=== PATIENT | female | born 2005 | race Caucasian/White ===

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

== ENCOUNTER 2025-01-15 15:24 | Emergency (ER) | payer BC, SELFPAY ==
--- OUTSIDE RECORDS SUMMARY | 2025-01-06 07:30 | XMS_ITS | Encounter Summary ---
Author Organization [facility] Address [id number] [address] [place] [address] Care Team Providers Care Printed Forms Proofreader Name Role Phone Luann Ji MD Primary Care Provider [phone] Reason for Visit * Reason Comments Follow-up 4 mo f/u- l/s KM- of fered a sooner appt- pt declined- pt passed out 12/15- want to be seen sooner- labs 11/18/24- sched w pt Encounter Details Date Type Department Care Team (Late st Contact Info) Description 01/06/2025 7:30 AM EDT Office Visit [facility] [address] [place] [phone] Kellee Pearson, FLARE STITCHER-CHARGE AUTHORIZER [address] [place] [address] Dysautonomia ([facility]) Social History Tobacco Use Types Packs/Day Years Used Date Smoking Tobacco: Never Smokeless Tobacco: Never Alcohol Use Standard Drinks/Week Comments Never 0 (1 standard drink = 0.6 oz pur e alcohol) PHQ-2 Answer Date Recorded Total Score 14 01/24/2024 Childcare Answer Date Recorded Childcare Unknown 01/14/2019 Employment Answer Date Recorded Employment Unknown 01/14/2019 Hunger Screening Answer Date Recorded Within the past 12 months we worried whether our food would run out before we got money to buy more. Never True 11/18/2024 Within the past 12 months th e food we bought just didn't last and we didn't have money to get more. Never True 11/18/2024 Comments No Sex and Gender Information Value Date Recorded Sex Assigned at Not on file Legal Sex Female 3:50 PM EST Gender Identity Not on file Sexual Orientation Not on file documented as of this encounter Last Filed Vital Signs Vital Sign Reading Time Taken Comments Blood Pressure 100/60 01/06/2025 7:39 AM EDT Pulse 97 01/06/2025 7:39 AM EDT Temperature - - Respiratory Rate - - Oxygen Saturation 100% 01/06/2025 7:39 AM EDT Inhaled Oxygen Concentration - - Weight 78.8 kg (173 lb 12.8 oz) 01/06/2025 7:39 AM EDT Height 160 cm (5' 2.99 ) 01/06/2025 7:39 AM EDT Body Mass Index 30.8 01/06/2025 7:39 AM EDT documented in this encounter Progress Notes * Kellee Pearson, FLARE STITCHER-CHARGE AUTHORIZER - 01/06/2025 7:30 AM EDT William Moser Date of visit: 01/06/2025 Date of : 2005 Age: 19 y.o. Patient Active Problem List Diagnosis ADHD (attention deficit hyperactivity disorder) Depression Oppositional defiant disorder Sleeping difficulty Cognitive developmental delay Speech delay Migraine without aura Postural dizziness with near syncope No Known Allergies Current Outpatient Medications Medication Sig Dispense Refill escitalopram (LEXAPRO) 10 mg tablet Take 1 tablet (10 mg total) by mouth in the morning. hydrOXYzine (VISTARIL) 25 mg capsule 1 capsule (25 mg total). medroxyPROGESTERone (DEPO-PROVERA) 150 mg/mL syringe Inject 1 mL (150 mg total) into the appropriate muscle every 3 (three) months. 1 mL 1 QELBREE 200 mg capsule,extended release 24hr blood pressure monitor (BLOOD PRESSURE KIT) kit 1 Unit by miscellaneous route once for 1 dose. 1 each 0 midodrine (PROAMATINE) 10 mg tablet Take 1 tablet (10 mg total) by mouth 3 (three) times a day. 90 tablet 3 No current facility-administered medications for this visit. Chief Complaint Patient presents with Follow-up 4 mo f/u- l/s KM- offered a sooner appt- pt declined- pt passed out 12/15- want to be seen sooner- labs 11/18/24- sched w pt History of Present Illness William Wallace Young 19-year-old female presents today accompanied by her mom to office appointment. available in office building. Patient has past medical history of POTS/dysautonomia, ADHD, depression. Had a syncopal episode after she did not get a break at work all day. 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 Patient reports she was standing for 8 hours and was unable to get breaks to be able to sit down rest. She is also not wearing compression socks. Blood pressure is normotensive in office today. She has been taking 5 mg of midodrine we discussed increasing i t to 10. We also discussed increasing electrolyte solution and sodium intake which patient agrees to. She is not monitoring her blood pressure at home because she does not have a blood pressure cuff.On blood pressure kit will be ordered in office today encourage her to continue to monitor in hold midodrine for systolic blood pressure greater than 130. No chest discomfort, shortness breath, palpitations, orthopnea PND or edema. Occasional lightheadedness dizziness and presyncope which is ongoing. Past Medical History: Diagnosis Date Anxiety Benign heart murmur Depression Dog bite Dysautonomia orthostatic hypotension syndrome Low blood pressure Ringworm of the scalp Tinea capitis No data recorded No data [...] Partners: Male control/protection: Injection Other Topics Concern Caffeine Use Yes Social History Narrative Not on file Social Drivers of Health Financial Resource Strain: Low Risk (03/18/2024) Received from [facility] Overall Financial Resource Strain (CARDIA) Difficulty of Paying Living Expenses: Not very hard Food Insecurity: No Food Insecurity (11/18/2024) Hunger Screening Food Insecurity - Worry: Never True Food Insecurity - Inability: Never True Transportation Needs: No Transportation Needs (03/18/2024) Received from [facility] PRAPARE - Transportation Lack of Transportation (Medical): No Lack of Transportation (Non-Medical): No Physical Activity: Not on file Stress: Not on file Social Connections: Not on file Interpersonal Safety: Not on file Housing Instability: Unknown (03/18/2024) Received from [facility] Housing Stability Vital Sign Unable to Pay for Housing in the Last Year: Patient declined Number of Times Moved in the Last Year: 1 Homeless in the Last Year: No Review of Systems Review of Systems Constitutional: Positive for malaise/fatigue. HENT: Positive for nosebleeds. Respiratory: Positive for shortness of breath. Negative for cough and wheezing. Hematologic/Lymphatic: Bruises/bleeds easily. Musculoskeletal: Positive for joint pain (hands). Negative for joint swelling, muscle cramps and muscle weakness. Gastrointestinal: Positive for diarrhea and nausea. Negative for bloating, abdominal pain, constipation, heartburn, hematochezia and vomiting. Genitourinary: Negative for hematuria. Neurological: Positive for dizziness, headaches and light-headedness. Vascular: Negative for claudication and lower extremity [...] mood, memory and judgement. VITAL SIGNS: BP 100/60 Pulse 97 Ht 160 cm (5' 2.99 ) Wt 78.8 kg (173 lb 12.8 oz) SpO2 100% BMI 30.80 kg/m?? Orders Placed or Reconciled This Encounter Medications hydrOXYzine (VISTARIL) 25 mg capsule Si capsule (25 mg total). midodrine (PROAMATINE) 10 mg tablet Sig: Take 1 tablet (10 mg total) by mouth 3 (three) times a day. Dispense: 90 tablet Refill: 3 blood pressure monitor (BLOOD PRESSURE KIT) kit Si Unit by miscellaneous route once for 1 dose. Dispense: 1 each Refill: 0 Medications Discontinued During This Encounter Medication Reason midodrine (PROAMATINE) 5 mg tablet IMPRESSIONS/PLAN 1. Dysautonomia (CMS-HCC) 2. Pots 3. Orthostatic hypotension 4. Normal LV function with no primary valve disease Increase sodium intake/wear compression socks/monitor blood pressure at home will increase her midodrine to 10 mg t.i.d.. She encouraged to take breaks sit down if feeling lightheaded. We discussed the importance of wearing compression hose I think this will significantly improve her symptoms in addition to increasing her medications and mean heating hydration and drinking electrolyte solutions discussed with patient and mom in office today. Patient verbalized understanding. Will follow up in 4weeks or sooner if needed. TODAYS ORDERS No orders of the defined types were placed in this encounter. FOLLOW UP Return in about 4 weeks (around 02/03/2025). PCP: Luann Ji MD Referring Physician: Luann Ji MD [address] [place] [id number] IBETH Mosher 01/06/25 0804 documented in this encounter Plan of Treatment Upcoming Encounters Date Type Department Care Team (Late st Contact Info) Description 02/11/2025 12:30 PM EDT Office Visit [facility] [address] [place] [phone] Fabienne Murphy PA-C [address] [place] [address] 02/12/2025 3:30 PM EDT Nurse Injection [facility] [address] [place] [address] documented as of this encounter Visit Diagnoses Diagnosis Dysautonomia (CMS-HCC) Unspecified disorder of autonomic nervous system documented in this encounter Additional Health Concerns Assessment Noted Time PHQ-9 Depression Total Score: 14 024 8:38 AM EDT documented as of this encounter Care Teams Printed Forms Proofreader Relationship Specialty Start Date End Date Luann Ji MD [address] [place] [phone] PCP - General Pediatrics 06/11/24 documented as of this encounter
--- OUTSIDE RECORDS SUMMARY | 2025-01-15 15:30 | XMS_ITS | Encounter Summary ---
Author Organization [employer] [facility] [employer] Address [id number] [address] [place] [address] Care Team Providers Care Seaming Inspector Name Role Phone Luann Ji MD Primary Care Provider [phone] Encounter Details Date Type Department Care Team (Late Contact Info) Description 04/17/2024 Telephone [facility] [address] [place] [address] Roya Alston Social History Tobacco Use Types Packs/Day Years [...] got money to buy more. Never True 01/24/2024 Within the past 12 months th e food we bought just didn't last and we didn't have money to get more. Never True 01/24/2024 Comments No Sex and Gender Information Value Date Recorded Sex Assigned at Not on file Legal Sex Female 3:50 PM EST Gender Identity Not on file Sexual Orientation Not on file documented as of this encounter Plan of Treatment Upcoming Encounters Date Type Department Care Team (Late Contact Info) Description 02/11/2025 12:30 PM EDT Office Visit [facility] [address] [place] [address] Fabienne Murphy PA-C [address] [place] [address] 02/12/2025 3:30 PM EDT Nurse Injection [facility] [address] [place] [address] documented as of this encounter Visit Diagnoses Not on filedocumented in this encounter Additional Health Concerns Assessment Noted Time PHQ-9 Depression Total Score: 14 024 8:38 AM EDT documented as of this encounter Care Teams Seaming Inspector Relationship Specialty Start Date End Date Luann Ji MD [address] [place] [address] PCP - General Pediatrics 06/11/24 documented as of this encounter
--- OUTSIDE RECORDS SUMMARY | 2025-01-15 15:30 | XMS_ITS | Encounter Summary ---
Author Organization [employer] Address [id number] [address] [place] [address] Care Team Providers Care Oyster Grower Name Role Phone Luann Ji MD Primary Care Provider [phone] Encounter Details Date Type Department Care Team (Late Contact Info) Description 02/16/2024 Orders Only [facility] [address] [place] [address] External, Scanning Provider Social History Tobacco Use Types Packs/Day Years [...] [facility] [address] [place] [phone] Fabienne Murphy PA-C [address] [place] [address] 02/12/2025 3:30 PM EDT Nurse Injection [facility] [address] [place] [address] documented as of this encounter Procedures Procedure Name Priority Date/Time Associated Diagnosis Comments ECG 12-LEAD Routine 02/16/2024 3:29 PM EDT documented in this encounter Results * ECG 12 lead (02/16/2024 3:29 PM EDT) us Scanning Provider External ECG ORDERABLES Final Result MANUALLY TRANSCRIBED RESULTS documented in this encounter Visit Diagnoses Not on filedocumented in this encounter Additional Health Concerns Assessment Noted Time PHQ-9 Depression Total Score: 14 01/23/ 024 8:38 AM EDT documented as of this encounter Care Teams Oyster Grower Relationship Specialty Start Date End Date Luann Ji MD [address] [place] [id number] PCP - General Pediatrics 06/11/24 documented as of this encounter
--- OUTSIDE RECORDS SUMMARY | 2025-01-15 15:30 | XMS_ITS | Encounter Summary ---
Author Organization [facility] Address [address] [place] [address] Care Team Providers Care Interior Decorator Paperhanging Name Role Phone Luann Ji DO Primary Care Provider [phone] Reason for Visit * Reason Comments Medication Refill Encounter Details Date Type Department Care Team (Late Contact Info) Description 05/06/2017 Refill [facility] Pediatric Neurology Spec [address] [facility] [address] [place] [address] Elicia Archer MD [address] [facility] [address] [place] [address] Medication Refill Social History Tobacco Use Types Packs/Day Years Used Date Smoking Tobacco: Never Smokeless Tobacco: Never Alcohol Use Standard Drinks/Week Comments No 0 (1 standard drink = 0.6 oz pur e alcohol) Comments Unknown Sex and Gender Information Value Date Recorded Sex Assigned at Not on file Legal Sex Female 3:31 PM EST Gender Identity Not on file Sexual Orientation Not on file documented as of this encounter Plan of Treatment Upcoming Encounters Date Type Department Care Team (Late st Contact Info) Description 03/18/2025 1:20 PM EDT Office Visit [facility] [address] [place] [phone] Luann Ji DO [address] [place], [place] [phone] 19 yr well documented as of this encounter Visit Diagnoses Diagnosis Vitamin D deficiency Unspecified vitamin D deficiency documented in this encounter Care Teams Interior Decorator Paperhanging Relationship Specialty Start Date End Date Luann Ji DO PCP - General Pediatrics 10/04/18 documented as of this encounter
--- OUTSIDE RECORDS SUMMARY | 2025-01-15 15:30 | XMS_ITS | Encounter Summary ---
Author Organization [facility] Address [address] [place] [address] Care Team Providers Care Meat Service Team Member Name Role Phone Luann Ji DO Primary Care Provider [phone] Reason for Visit * Reason Comments Medication Refill Encounter Details Date Type Department Care Team (Late Contact Info) Description 08/22/2015 Refill [facility] [address] [place] [address] Richard Lackey MD [address] [facility] [address] [place] [address] Medication Refill Social History Tobacco Use Types Packs/Day Years Used Date Smoking Tobacco: Never Alcohol Use Standard Drinks/Week Comments [...] Description 03/18/2025 1:20 PM EDT Office Visit [facility] [address] [place] [address] Luann Ji DO [address] [place] [address] 19 yr well documented as of this encounter Visit Diagnoses Not on filedocumented in this encounter Care Teams Meat Service Team Member Relationship Specialty Start Date End Date Luann Ji DO PCP - General Pediatrics 10/04/18 documented as of this encounter
--- OUTSIDE RECORDS SUMMARY | 2025-01-15 15:30 | XMS_ITS | Clinical Summary ---
Author Organization [facility] Address [address] [place] [address] Care Team Providers Care Architecture Professor Name Role Phone Richard Lackey MD Primary Care Provider [phone] Allergies No known active allergies Medications methylphenidate (METADATE CD) 20 mg oral capsule take 20 mg by mouth every morning. Active clonIDINE (CATAPRES) 0.1 mg oral tablet take 0.0025 mg/kg by mouth twice daily. Active risperidone (RISPERDAL) 0.25 mg oral tablet take 0.25 mg by mouth twice daily. Take 1/2 pill 2x/day Active montelukast (SINGULAIR) 5 mg oral tablet, chewable take 5 mg by mouth once daily. Active fluticasone (FLONASE) nasal spray by Each Nostril route as needed. Active Active Problems No known active problems Family History Medical History Relation Comments Alcoholism Maternal Grandfather Attention Deficit Hyperactivity Disorder Natural Father Language Disorder Natural Father Learning Disability Natural Father Sexual Abuse Victim Natural Father Language Disorder Natural Mother Learning Disability Natural Mother Relation Status Comments Maternal Grandfather Natural Father Natural Mother Social History Tobacco Use Types Packs/Day Years Used Date Smoking Tobacco: Never Assessed Comments Unknown Sex and Gender Information Value Date Recorded Sex Assigned at Not on file Legal Sex Female 12:00 PM EDT Gender Identity Not on file Sexual Orientation Not on file Plan of Treatment Health Maintenance Due Date Last Done Comments MMR Vaccine (1 of 1 - Standa rd series) 2006 DTaP/Tdap/Td Vaccine (1 - Tdap) 2012 Varicella Vaccine (1 of 2 - 13+ 2-dose series) 2018 HPV Vaccine (1 - 3-dose series) 2020 Meningococcal B Vaccine (1 o f 2 - Standard) 2021 COVID-19 Vaccine (2023-2 5 season) 2024 Hepatitis B Vaccine (1 of 3 - 19+ 3-dose series) 2024 Influenza Vaccine (Season Ended) 2025 HIB Vaccine Aged Out No longer eligi ble based on patient's age to complete this topic Hepatitis A Vaccine Aged Out No longe r eligible based on patient's age to complete this topic IPV Vaccine Aged Out No longer eligi ble based on patient's age to complete this topic Meningococcal ACWY Vaccine Aged Out N o longer eligible based on patient's age to complete this topic Pneumococcal Vaccine Aged Out No long er eligible based on patient's age to complete this topic RSV, Nirsevimab Immunization Aged Out No longer eligible based on patient's age to complete this topic Rotavirus Vaccine Aged Out No longer eligible based on patient's age to complete this topic Insurance Care Teams Architecture Professor Relationship Specialty Start Date End Date Richard Lackey MD [address] [facility], [facility] [place] [address] PCP - General Teacher'S Assistant 09/03/12
--- OUTSIDE RECORDS SUMMARY | 2025-01-15 15:30 | XMS_ITS | Clinical Summary ---
Author Organization [facility] Address [address] [place] [address] Care Team Providers Care Diagnostic Assistant Name Role Phone Luann Ji MD Primary Care Provider [phone] Allergies No known active allergies Medications escitalopram (Lexapro) 20 MG tablet Take 20 mg by mouth in the morning. 08/13/2024 Active hydrOXYzine pamoate (Vistaril) 25 MG capsule TAKE 1 CAPSULE BY MOUTH TWICE DAILY NEEDED FOR ANXIETY 08/13/2024 Active midodrine (Proamatine) 5 MG tablet Take 5 mg by mouth in the morning and 5 mg at noon and 5 mg in the evening. 06/07/2024 Active traZODone (Desyrel) 50 MG tablet Take 50 mg by mouth as needed at bedtime 08/13/2024 Active Qelbree 200 MG capsule sustained-relea se 24 hr TAKE 2 CAPSULES BY MOUTH IN THE MORNING. Active Active Problems No known active problems Family History Relation Name Status Comments Father Alive Mother Alive Social History Tobacco Use Types Packs/Day Years Used Date Smoking Tobacco: Never Smokeless Tobacco: Never Tobacco Cessation:Counseling Given: Not Answered Alcohol Use Standard Drinks/Week Comments Not Currently 0 (1 standard drink = 0.6 oz pur e alcohol) Comments Unknown Sex and Gender Information Value Date Recorded Sex Assigned at Not on file Legal Sex Female 7:10 PM EDT Gender Identity Not on file Sexual Orientation Not on file Last Filed Vital Signs Vital Sign Reading Time Taken Comments Blood Pressure 98/58 03/29/2017 12:00 PM EDT Pulse - - Temperature - - Respiratory Rate - - Oxygen Saturation - - Inhaled Oxygen Concentration - - Weight 74.4 kg (164 lb) 09/05/2024 2:42 PM EST Height 160 cm (5' 3 ) 09/05/2024 2:42 PM EST Body Mass Index 29.05 09/05/2024 2:42 PM EST Body Mass Index Percentile 92.81% 09/05/2024 2:4 2 PM EST Growth Chart: [facility] (Girls, 2- 20 Years) Plan of Treatment Not on file Insurance [employer] [facility] Care Teams Diagnostic Assistant Relationship Specialty Start Date End Date Luann Ji MD [address] [place] [address] PCP - General Pediatrics 09/05/24
--- OUTSIDE RECORDS SUMMARY | 2025-01-15 15:30 | XMS_ITS | Encounter Summary ---
Author Organization [employer] Address [id number] [address] [place] [address] Care Team Providers Care Dry Kiln Operator Name Role Phone Luann Ji MD Primary Care Provider [phone] Encounter Details Date Type Department Care Team (Latest Contact Info) Description 01/06/2025 Travel Social History Tobacco Use Types Packs/Day Years [...] [facility] [address] [place] [phone] Fabienne Murphy PA-C [address] [place] [address] 02/12/2025 3:30 PM EDT Nurse Injection [facility] [address] [place] [address] documented as of this encounter Visit Diagnoses Not on filedocumented in this encounter Additional Health Concerns Assessment Noted Time PHQ-9 Depression Total Score: 14 024 8:38 AM EDT documented as of this encounter Care Teams Dry Kiln Operator Relationship Specialty Start Date End Date Luann Ji MD [address] [place] [address] PCP - General Pediatrics 06/11/24 documented as of this encounter
--- OUTSIDE RECORDS SUMMARY | 2025-01-15 15:30 | XMS_ITS | Encounter Summary ---
Author Organization [employer] Address [id number] [address] [place] [address] Care Team Providers Care Hourly Associate Name Role Phone Luann Ji MD Primary Care Provider [phone] Encounter Details Date Type Department Care Team (Late st Contact Info) Description 07/18/2023 Telephone [facility]ne[facility] [address] [facility] [place] [address] Raeann Luna Social History Tobacco Use Types Packs/Day Years Used Date Smoking Tobacco: Never Smokeless Tobacco: Never Alcohol Use Standard Drinks/Week Comments Never 0 (1 standard drink = 0.6 oz pur e alcohol) Childcare Answer Date Recorded Childcare Unknown 01/14/2019 Employment Answer Date Recorded Employment Unknown 01/14/2019 Comments No Sex and Gender Information Value Date Recorded Sex Assigned at Not on file Legal Sex Female 3:50 PM EST Gender Identity Not on file Sexual Orientation Not on file documented as of this encounter Miscellaneous Notes * Telephone Encounter - Raeann Luna - 07/18/2023 2:07 PM EST Patient's mom called stating the patient is due for her next depo injection & needs a refill sent in on the medication as she gives the patient her injection at home. Patient's mother also asked if she has to call in every 3 months requesting a refill or if we can send in refills. It looks likethe patient is due for her annual BC appointment in August. Please advise. Thank you. * Telephone Encounter - Raeann Luna - 07/18/2023 2:07 PM EST ----- Message from Janie Freeman sent at 07/18/2023 3:39 PM EST ----- ----- Message ----- From: Judy Fiore APRN-CNM Sent: 07/18/2023 2:29 PM EST To: Janie Freeman Please have pt. Schedule to come in and receive depo. Thank you. Judy Fiore CNM * Telephone Encounter - Raeann Luna - 07/18/2023 2:07 PM EST Patient's mother was unsure what date she last gave patient her depo injection. Patient mom notified patient is due for annual bc appointment per Orin. Patient is scheduled 07/25/23. documented in this encounter Plan of Treatment Upcoming Encounters Date Type Department Care Team (Late st Contact Info) Description 02/11/2025 12:30 PM EDT Office Visit [facility] [address] [place] [phone] Fabienne Murphy PA-C [address] [place] [address] 02/12/2025 3:30 PM EDT Nurse Injection [facility] [address] [place] [address] documented as of this encounter Visit Diagnoses Not on filedocumented in this encounter Care Teams Hourly Associate Relationship Specialty Start Date End Date Luann Ji MD [address] [place] [address] PCP - General Pediatrics 06/11/24 documented as of this encounter
--- OUTSIDE RECORDS SUMMARY | 2025-01-15 15:30 | XMS_ITS | Clinical Summary ---
Author Organization [employer] Address [id number] [address] [place] [address] Care Team Providers Care Resident Intern Name Role Phone Luann Ji MD Primary Care Provider [phone] Allergies No known active allergies Medications escitalopram (LEXAPRO) 10 mg tablet Take 1 tablet (10 mg total) by mouth in the morning. 022 Active medroxyPROGESTER one (DEPO-PROVERA) 150 mg/mL syringeIndicatio ns:Surveillance of contraceptive injection Inject 1 mL (150 mg total) into the appropriate muscle every 3 (three) months. 1 mL 1 023 Active QELBREE 200 mg capsule,extended release 24hr 024 Active hydrOXYzine (VISTARIL) 25 mg capsule 1 capsule (25 mg total). 024 Active midodrine (PROAMATINE) 10 mg tablet Take 1 tablet (10 mg total) by mouth 3 (three) times a day. 90 tablet 3 025 Active midodrine (PROAMATINE) 5 mg tabletIndication s:Dysautonomia (CMS-HCC) Take 1 tablet (5 mg total) by mouth 3 (three) times a day. 270 tablet 3 025 2024 Discontinued blood pressure monitor (BLOOD PRESSURE KIT) kit 1 Unit by miscellaneous route once for 1 dose. 1 each 025 2024 Active Problems Problem Noted Date Diagnosed Date Postural dizziness with near syncope 03/21/2023 Migraine without aura 08/23/2022 Sleeping difficulty 09/12/2016 Cognitive developmental delay 09/12/2016 Speech delay 09/12/2016 ADHD (attention deficit hyperactivity disorder) 01/01/2015 Depression 01/01/2015 Oppositional defiant disorder 01/01/2015 Overview (08/23/2022): Replacing Inactive Diagnoses Encounters Date Type Department Care Team Description 01/06/2025 7:30 AM EDT Office Visit [facility] [address] [place] [phone] Kellee Pearson, SECURITY PROGRAM MANAGER-APPLICATION INTEGRATION SPECIALIST Dysautonomia ([facility]) 01/06/2025 Travel 12/16/2024 Refill [facility] [address] [place] [phone] Nan Olsen RN Med Refill 11/27/2024 3:30 PM EDT Nurse Injection [facility] [address] [address] 11/27/2024 Travel 11/22/2024 Telephone [facility] [address] [place] [address] Judy Fiore, SECURITY PROGRAM MANAGER-CNM 11/18/2024 6:02 PM EDT - 11/18/2024 11:59 PM EDT Hospital Encounter [facility] [address] [place] [address] Acute vaginitis; Screening for STD (sexually transmitted disease); Dysuria Discharge Disposition: Home 11/18/2024 2:45 PM EDT Office Visit [facility] [address] [place] [phone] Kaur Ojeda MD Dysuria (Primary Dx); Screening for STD (sexually transmitted disease); Acute vaginitis; Acute cystitis with hematuria 11/18/2024 Travel from Last 3 Months Family History Medical History Relation Name Comments ADD / ADHD Father Depression Father Hypotension Maternal Grandmother Depression Mother Hypotension Mother Relation Name Status Comments Father Alive Maternal Grandmother Mother Alive Social History Tobacco Use Types [...] Mass Index 30.8 01/06/2025 7:39 AM EDT Plan of Treatment Upcoming Encounters Date Type Department Care Team (Late st Contact Info) Description 02/11/2025 12:30 PM EDT Office Visit [facility] [address] [place] [phone] Fabienne Murphy PA-C [address] [place] [address] 02/12/2025 3:30 PM EDT Nurse Injection [facility] [address] [place] [address] Health Maintenance Due Date Last Done Comments Adult BMI Follow Up Plan 12/09/2023 Depression Screening 01/23/2025 01/24/2024 Influenza Vaccine 04/07/2025 07/24/2012, , 07/23/2009, Additional history exists Adult BMI Screening 01/06/2026 01/06/2025 Tobacco Screening 01/06/2026 01/06/2025 DTaP,Tdap and Td Vaccines (7 - Td or Tdap) 03/19/2028 03/19/2018, 03/17/2011, 03/22/2007, Additional history exists Medical Devices Not on file Procedures Procedure Name Priority Date/Time Associated Diagnosis Comments CHLAMYDIA/GC BY PCR CHANDANA SWAB Routine 11/18/2024 3:04 PM EDT Screening for STD (sexually transmitted disease) VAGINITIS PANEL PCR Routine 11/18/2024 3 :04 PM EDT Acute vaginitis URINE CULTURE Routine 11/18/2024 2:31 PM EDT Dysuria from Last 3 Months Results * Chlamydia/GC by PCR Chandana Swab (11/18/2024 3:04 PM EDT) Specimen source CERVIX 6:22 PM EDT [facility] Chlamydia DNA PCR Negative Negative^N egative 11/19/2024 2:[address] [facility] Comment: Chlamydia trachomatis not detected by nucleic acid amplification. This does not exclude the possibility of infection because results are dependent on adequate specimen collection. Gonorrhea DNA PCR Negative Negative^N egative 11/19/2024 2:[address] [facility] Comment: Neisseria gonorrhoeae not detected by nucleic acid amplification. This does not exclude the possibility of infection because results are dependent on adequate specimen collection. GENS 11/18/2024 3:04 PM EDT 11/18/2024 6:22 PM EDT us Kaur Ojeda MD MICROBIOLOGY - GENERAL ORDERAB LES Final Result [facility] [address] [place] [address] * Vaginitis Panel PCR (11/18/2024 3:04 PM EDT) Bact. Vaginosis DNA Not Detected Not Detected^No t Detected 11/19/2024 1:[address] [facility] Comment: Qualitative results are reported based on detection and quantitation of targeted organism markers which include: Lactobacillus spp. (L. crispatus and L. jensenii), Gardnerella vaginalis, Atopobium vaginae, Bacterial Vaginosis Associated Bacteria-2 (BVAB-2) and Megasphaera-1 Catia Species DNA Not Detected Not Detected^No t Detected 11/19/2024 1:[address] [facility] Comment: Catia species not detected include: C. albicans, C. tropicalis, C. parapsilosis or C. dubliniensis Catia Krusei DNA Not Detected Not Detected^No t Detected 11/19/2024 1:[address] [facility] Comment:No Catia krusei de tected Catia Glabrata DNA Not Detected Not Detected^No t Detected 11/19/2024 1:[address] [facility] Comment:No Catia glabrata detected Trichomonas Vag DNA Not Detected Not Detected^No t Detected 11/19/2024 1:[address] [facility] Comment: No Trichomonas vaginalis detected NOTE BD MAX Vaginal Panel has not been evaluated for patients under 18 years old. Results for these patients should be reviewed and assessed in accordance with clinical presentation to determine patient diagnosis. Vaginal structure / Unknown 11/18/2024 3:04 PM EDT 11/18/2024 6:21 PM EDT us Kaur Ojeda MD MICROBIOLOGY - GENERAL ORDERAB LES Final Result [facility] [address] [facility] [place] [address] * Urine Culture (11/18/2024 2:31 PM EDT) Pathologist [facility] Culture <10,000 ORGANISMS/ML NORMAL URO GENITAL GOGO 11/19/2024 3:[address] [facility] Urine Urine specimen collection, clean catch / Unknown 11/18/2024 2:31 PM EDT 11/18/2024 7:20 PM EDT us Kaur Ojeda MD MICROBIOLOGY - GENERAL ORDERAB LES Final Result [facility] [address] [place] [address] from Last 3 Months Insurance ANTH Care Teams Resident Intern Relationship Specialty Start Date End Date Luann Ji MD [address] [place] [address] PCP - General Pediatrics 06/11/24
--- OUTSIDE RECORDS SUMMARY | 2025-01-15 15:30 | XMS_ITS | Encounter Summary ---
Author Organization [facility] Address [address] [place] [address] Care Team Providers Care Food Service Aide Name Role Phone Richard Lackey MD Primary Care Provider [phone] Encounter Details Date Type Department Care Team (Latest Contact Info) Description 06/18/2013 Documentation Only Child Development [address] [id number] Ken Hunt, PhD [address] [place] [address] Teacher response booklet received Social History Tobacco Use Types Packs/Day Years Used Date Smoking Tobacco: Never Assessed Comments Unknown Sex and Gender Information Value Date Recorded Sex Assigned at Not on file Legal Sex Female 12:00 PM EDT Gender Identity Not on file Sexual Orientation Not on file documented as of this encounter Plan of Treatment Not on file documented as of this encounter Visit Diagnoses Not on filedocumented in this encounter Care Teams Food Service Aide Relationship Specialty Start Date End Date Richard Lackey MD [address] [facility], [place] [address] PCP - General Obstetrician Gynecologist 09/03/12 documented as of this encounter
[2025-01-15 15:31] VITALS: BP 213/79; PULSE 107; TEMP 37.1; O2SAT 96; BMI 30.3
--- OUTSIDE RECORDS SUMMARY | 2025-01-15 15:31 | XMS_ITS | Encounter Summary ---
Author Organization [facility] Address [address] [place] [address] Care Team Providers Care Inspector Aluminum Boat Name Role Phone Luann Ji DO Primary Care Provider [phone] Reason for Visit * Reason Comments Medication Refill Encounter Details Date Type Department Care Team (Late Contact Info) Description 11/09/2015 Refill [facility] [address] [place] [phone] Richard Lackey MD [address] [facility] [address] [place] [address] Medication Refill Social History Tobacco [...] Description 03/18/2025 1:20 PM EDT Office Visit [facility] [address] [place] [address] Luann Ji DO [address] [place] [address] 19 yr well documented as of this encounter Visit Diagnoses Not on filedocumented in this encounter Care Teams Inspector Aluminum Boat Relationship Specialty Start Date End Date Luann Ji DO PCP - General Pediatrics 10/04/18 documented as of this encounter
--- OUTSIDE RECORDS SUMMARY | 2025-01-15 15:31 | XMS_ITS | Encounter Summary ---
Author Organization [facility] Address [address] [place] [address] Care Team Providers Care Undercutter Operator Name Role Phone Luann Ji DO Primary Care Provider [phone] Reason for Visit * Reason Comments Medication Refill Encounter Details Date Type Department Care Team (Late Contact Info) Description 11/02/2015 Refill [facility] [address] [place] [address] Richard Lackey MD [address] [facility] [address] [facility] [place] [address] Medication Refill Social History Tobacco [...] Description 03/18/2025 1:20 PM EDT Office Visit [facility] [address] [place] [address] Luann Ji DO [address] [place] [address] 19 yr well documented as of this encounter Visit Diagnoses Not on filedocumented in this encounter Care Teams Undercutter Operator Relationship Specialty Start Date End Date Luann iJ DO PCP - General Pediatrics 10/04/18 documented as of this encounter
[2025-01-15] MEDS: BACITRACIN 0.9 GM PACKET 1 PACKET TOPICAL (15:56)
[2025-01-15] MEDS: ADACEL DIPH,PERTUSS(ACELL),TET VAC/PF 0.5 ML ADULT SYRINGE IM (15:57)
[2025-01-15] MEDS: LIDOCAINE HCL 1% 100 MG/10 ML MDV INJ (15:57)
--- NOTE | 2025-01-15 16:59 | ED_ITS ---
HPI - Wound/Laceration General Chief Complaint: Wound/Laceration Stated Complaint: laceration on left hand Time Seen by Provider: 01/15/25 15:39 Source: patient Mode of arrival: walk-in Limitations: no limitations History of Present Illness HPI narrative: 19-year-old female presents to the emergency department with complaint of injury to her left thumb. Injury occurred shortly prior to arrival. States she accid entally cut her thumb with a chisel she was using to make a sword. Complains of some pain, tenderness. There is some bleeding. Denies any motor or sensory changes, paresthesias. States last tetanus shot was when she was in middle school. She is right-hand Quality:?Penetrating trauma Severity:?Mild Timing:?as above, injury occurred prior to arrival, constant Context: Normal setting and activity? Modifying factors:?Worse with palpation Associated symptoms: as above Related Data Home Medications ?Medication ?Instructions ?Recorded ?Confirmed hydroxyzine pamoate 25 mg capsule 25 mg PO 06/30/24 viloxazine 200 mg capsule,extended 200 mg PO DAILY 01/15/25 release 24 hr (Qelbree) escitalopram oxalate 20 mg tablet mg 01/15/25 midodrine 10 mg tablet mg 01/15/25 Allergies Allergy/AdvReac Type Severity Reaction Status Date / Time No Known Drug Allergies Allergy Verified 01/15/25 15:31 Review of Systems ROS Narrative CONST: Denies diaphoresis, weakness MS: Denies arthralgias, myalgias SKIN:? +wound.? Denies swelling NEURO: Denies weakness, numbness, paresthesias PFSH PFSH Social History Smoking status: Never smoker Little interest or pleasure in doing things: not at all Feeling down, depressed, or hopeless: not at all Exam Narrative Exam Narrative: Vital signs noted Nurses notes reviewed CONST: Nontoxic, well appearing, well nourished, in no distress.? No diaphoresis.?? HENT: normocephalic, atraumatic, CV: 2+ palpable left radial pulse MS: + Tenderness to the area around the 1.5 cm wound overlying the dorsal proximal aspect of her left thumb. ? No tenderness to the remainder of her hand .? No swelling, ecchymosis, discoloration, crepitus, deformity, instability, warmth.? ROM full flexion, extension, opposition.? Strength 5/5 NEURO: Sensory intact throughout and distal to the injury SKIN: + laceration PSYCHIATRIC: + Anxious Constitutional Vital Signs, click to edit/add: Last Vital Signs Temp 98.7 F 01/15/25 15:31 Pulse 107 H 01/15/25 15:31 Resp 16 01/15/25 15:31 BP 213/79 H 01/15/25 15:31 Pulse Ox 96 01/15/25 15:31 O2 Del Method Room Air 01/15/25 15:31 Course Vital Signs Vital signs: Vital Signs Temperature 98.7 F 01/15/25 15:31 Pulse Rate 107 H 01/15/25 15:31 Respiratory Rate 16 01/15/25 15:31 Blood Pressure 213/79 H 01/15/25 15:31 Pulse Oximetry 96 01/15/25 15:31 Oxygen Delivery Method Room Air 01/15/25 15:31 Temperature 98.7 F 01/15/25 15:31 Pulse Rate 107 H 01/15/25 15:31 Respiratory Rate 16 01/15/25 15:31 Blood Pressure 213/79 H 01/15/25 15:31 Pulse Oximetry 96 01/15/25 15:31 Oxygen Delivery Method Room Air 01/15/25 15:31 MDM - Wound/Laceration MDM Narrative Medical decision making narrative: This is a pleasant 19-year-old female who presents to the emergency department for evaluation of injury to her left thumb On arrival, afebrile, vital signs stable. On exam, nontoxic, well appearing patient, in no apparent distress. She has 1.5 cm laceration to the dorsal, proximal aspect of her left thumb. Range of Motion: Full. Neurovascular intact. Wound repaired as noted in procedure note above. Favor laceration left thumb FB/deep structure involvement less likely based on exam History and Record Review Additional records reviewed: No record Re-Evaluation: wound repaired Disposition ? The patient was discharged. Wound care instructions given both verbally and on discharge paperwork Plan: Patient will be discharged to home.? Condition at time of disposition: stable, improved.? Advised to follow up with primary provider. Advised to return for any worsening and/or development of new, concerning signs or symptoms PLEASE NOTE: Portions of the medical record may have been produced using electronic head of measurement & insights and may contain errors with respect to translation of words which may not have been identified prior to finalization of the chart. Discharge Plan Discharge Chief Complaint: Wound/Laceration Clinical Impression: Laceration of left thumb, Pain of left thumb Patient Disposition: Home, Self-Care Time of Disposition Decision: 16:12 Condition: Good Mode of Transportation: Private Vehicle Prescriptions / Home Meds: No Action hydroxyzine pamoate 25 mg capsule 25 mg PO Qelbree 200 mg capsule,extended release 24hr 200 mg PO DAILY midodrine 10 mg tablet escitalopram oxalate 20 mg tablet Print Language: [place] Additional Instructions: Laceration, Sutures ? You have been treated for a laceration (cut). ? Follow up with your doctor OR come back here OR go to the nearest Emergency Department to have your sutures (stitches) taken out. Sutures should be taken out in: 7-10 days. ? Use the following wound care instructions: Keep the wound clean and dry for the next 24 hours. You can wash the wound gently with soap and water. DO NOT allow your wound to soak in water (don?t do the dishes or go swimming, for example). You can shower, but do not rub your stitches too hard. Let the wound dry before putting another bandage on. Take off old dressings every day. Then put on a clean, dry dressing. If the bandage sticks to the wound, slightly moisten it with water. This way, it can come off more easily. You can wash the wound gently with soap and water. To help remove a scab, cleanse the area with a mixture of half hydrogen peroxide and half water. This will also help us to take out the sutures later. Allow the area to dry completely before putting on a new bandage. Unless you receive instructions not to do so, you can place a thin layer of antibiotic ointment over the wound. You can buy Polysporin?, Bacitracin?, or Neosporin? at the store. Neosporin? can sometimes cause irritation to your skin. If this happens, stop using it and switch to another topical (surface) antibiotic. If needed, put a clean, dry bandage over the wound to protect it. ? Keep the affected area elevated (lifted) for the next 24 hours. This will decrease swelling and pain. You may also want to put ice on the area. By applying ice to the affected area, swelling and pain can be reduced. Place some ice cubes in a re-sealable (Ziploc?) bag and add some water. Put a thin washcloth between the bag and the skin. Apply the ice bag to the area for at least 20 minutes. Do this at least 4 times per day. It is OK to use the ice more frequently and for longer periods of time. DO NOT APPLY ICE DIRECTLY TO THE SKIN! ? If you had a local anesthetic, it will wear off in about 2 hours. Until then, be careful not to hurt yourself because of having less feeling in the area. ? YOU SHOULD SEEK MEDICAL ATTENTION IMMEDIATELY, EITHER HERE OR AT THE NEAREST EMERGENCY DEPARTMENT, IF ANY OF THE FOLLOWING OCCURS: You see redness or swelling. There are red streaks going up from the injured area. The wound smells bad or has a lot of drainage. You have fever (temperature higher than 100.4?F / 38?C), chills, worse pain and / or swelling. ? ?BE SURE TO: Call the Doctor today (or tomorrow AM) for appointment. Call us or return for any questions\problems. Return to Emergency at anytime if you are worse. Have your prescription(s) filled right now. WOUND CARE: Have your sutures removed in 7-10 days. Keep wound clean, dry, and covered. Use peroxide once a day to help remove build up. Vitamin A&D ointment or Vitamin E lotion after sutures are removed.? Massage in. Referrals: Physician,Non-Staff, [Physician] - 1 week Discharge Date/Time: 01/15/25 16:22 Procedures ED Laceration Laceration Left thumb: Site: hand (left thumb) Side (if applicable): left Size (cm): 1.5 Description: linear Depth: simple, single layer Anesthetic used: lidocaine 1% Anesthesia technique: local infiltration Amount (ml): 3 Pre-repair: wound explored, irrigated extensively and deep structures intact Skin layer closed with: other (nylon) Size (cm): 5-0 Number of sutures: 3 Technique: simple, interrupted Additional comments: Tolerated well, no complications. Bacitracin dressing applied
== END 2025-01-15 16:22 | disposition home or self-care (01) ==
PROVIDERS: Emergency Provider Emergency Medicine; PCP Pediatrics
DX: S61.012A Laceration without foreign body of left thumb without damage to nail, initial encounter (principal); M79.645 Pain in left finger(s); Z23 Encounter for immunization; W27.0XXA Contact with workbench tool, initial encounter
CPT/HCPCS: 12001; 90471; 90715; 99284

== ENCOUNTER 2025-05-13 21:02 | Emergency (ER) | payer BC, SELFPAY ==
--- OUTSIDE RECORDS SUMMARY | 2025-05-13 21:07 | XMS_ITS | CCD ---
Author Organization [facility] Care Team Providers Care Bait Digger Name Role Phone MARGY, LAMONTE Primary Care Unavailable NAVID DUENAS Referring Unavailable CRISTHIAN ROBBINS Attending Unavailable ROSENDO, CRISTHIAN Consulting Unavailable ROSENDO, CRISTHIAN Admitting Unavailable REQUEST, NONE LISTED Primary Care UnavailDEBORAH Nolasco Consulting Unavailable REQUEST, NONE LISTED Primary Care UnavailPRATIK Sanon Attending Unavailable MARV, PRATIK Admitting Unavailable Mehdi Perla Consulting Unavailable CHEMA SIMMONS Referring Unavailable [place], BYERS Primary Care Unavailable Margy IGLESIAS, [place] Primary Care Provider EVELIO PINEDA Attending Unavailable EVELIO PINEDA Referring Unavailable EVELIO PINEDA Referring Unavailable SURAJ FENTON Referring Unavailable KROTZER, SURAJ Lerma Referring Unavailable CHEMA SIMMONS Attending Unavailable MARGY, BYERS Referring Unavailable GLORIA OCHOA Attending Unavailable MARGY, BYERS Referring Unavailable MARGY, BYERS Primary Care Unavailable SALEEMCOTY Referring Unavailable MARGY, BYERS Primary Care Unavailable LUAN CEE Attending Unavailable MARGY, BYERS Referring Unavailable MARGY, BYERS Primary Care Unavailable KROTZERSURAJ M Attending Unavailable KROTZER SURAJ M Attending Unavailable MARGY, BYERS Primary Care Unavailable MARGY, BYERS Referring Unavailable MARGY, BYERS Primary Care Unavailable SALEEMCOTY BROOKS Attending Unavailable MARGY, BYERS Referring Unavailable MARGY, BYERS Primary Care Unavailable MARGY, BYERS Referring Unavailable MARGY, BYERS Primary Care Unavailable MARGY, BYERS Referring Unavailable MARGY, BYERS Primary Care Unavailable MARGY, BYERS Referring Unavailable MARGY, BYERS Primary Care Unavailable Medications Current Medications Medication Drug Class(es) Dates Sig (Normalized) Sig (Original) escitalopram 20 mg oral tablet (2 sources) Serotonin Reuptake Inhibitor Start: 01-07-2025 take 1 tablet by mouth in the morning escitalopram (Lexapro) 20 MG tablet Take 20 mg by mouth in the morning. 08/13/2024 Active hydrOXYzine pamoate 25 mg oral capsule (2 sources) Antihistamine Start: 08-13-2024 take 1 capsule by mouth twice daily as needed for anxiety hydrOXYzine pamoate (Vistaril) 25 MG capsule TAKE 1 CAPSULE BY MOUTH TWICE DAILY NEEDED FOR ANXIETY 08/13/2024 Active midodrine hydrochloride 5 mg oral tablet (2 sources) alpha-Adrenergic Agonist Start: 06-07-2024 midodrine (Proamatine) 5 MG tablet Take 5 mg by mouth in the morning and 5 mg at noon and 5 mg in the evening. 06/07/2024 Active Qelbree 200 MG capsule sustained-release 24 hr (2 sources) take 2 capsules by mouth every twenty-four hours in the morning Qelbree 200 MG capsule sustained-release 24 hr TAKE 2 CAPSULES BY MOUTH IN THE MORNING. Active traZODone hydrochloride 50 mg oral tablet (2 sources) Serotonin Reuptake Inhibitor Start: 08-13-2024 traZODone (Desyrel) 50 MG tablet Take 50 mg by mouth as needed at bedtime 08/13/2024 Active Problems Active Problems Problem Classification Problem Date Documented Date Episodic/Chronic Attention-deficit, conduct, and disruptive behavior disorders (1 source) Attention-deficit hyperactivity disorder, other type; Translations: [Attention-deficit hyperactivity disorder, other type] Onset: 08-23-2022 Chronic Developmental disorders (1 source) Developmental disorder of scholastic skills, unspecified; Translations: [Developmental disorder of scholastic skills, unspecified] Onset: 08-23-2022 Chronic E Codes: Fall (1 source) Unspecified fall, initial encounter; Translations: [UNSPECIFIED FALL INITIAL ENCOUNTER] Onset: 07-05-2021 Episodic E Codes: Natural/environment (1 source) Bitten by dog, initial encounter; Translations: [BITTEN BY DOG INITIAL ENCOUNTER] Onset: 09-30-2021 Episodic Genitourinary symptoms and ill-defined conditions (8 sources) Dysuria; Translations: [Frequency of micturition] Onset: 05-31-2024 Episodic Joint disorders and dislocations; trauma-related (4 sources) Derangement of right knee; Translations: [Unspecified internal derangement of right knee] 09-05-2024 Chronic Nervous system congenital anomalies (2 sources) Familial dysautonomia [Ismael-Day]; Translations: [Familial dysautonomia (ismael-day)] Onset: 06-07-2024 Chronic Open wounds of head; neck; and trunk (4 sources) Open bite of left ear, initial encounter; Translations: [OPEN BITE LT EAR INITIAL ENCOUNTER] Onset: 09-29-2021 Episodic Other connective tissue disease (3 sources) Pain in right leg; Translations: [PAIN IN RIGHT LEG] Onset: 06-29-2021 Episodic Other non-traumatic joint disorders (2 sources) Pain in right knee; Translations: [Pain in joint, lower leg] 09-05-2024 Episodic Residual codes; unclassified (1 source) High risk heterosexual behavior; Translations: [High risk heterosexual behavior] Onset: 02-19-2025 Episodic Superficial injury; contusion (1 source) Contusion of right lower leg, initial encounter; Translations: [CONTUSION RIGHT LOWER LEG INITIAL] Onset: 07-05-2021 Episodic Unclassified (1 source) New Patient Onset: 06-07-2024 Unclassified (1 source) Injection Onset: 05-07-2025 Unclassified (1 source) Difficulty Urinating Onset: 06-06-2024 Past or Other Problems Problem Classification Problem Date Documented Date Episodic/Chronic Conditions associated with dizziness or vertigo (1 source) Dizziness and giddiness; Translations: [Dizziness and giddiness] Onset: 05-03-2024 Episodic Contraceptive and procreative management (2 sources) Encounter for surveillance of injectable contraceptive; Translations: [Contraception ] Onset: 09-11-2024 Episodic Immunizations and screening for infectious disease (2 sources) Encounter for screening for infections with a predominantly sexual mode of transmission; Translations: [Encounter for screening for infections with a predominantly sexual mode of transmission] Onset: 06-06-2024 Episodic Inflammatory diseases of female pelvic organs (2 sources) Acute vaginitis; Translations: [Acute vaginitis] Onset: 11-18-2024 Episodic Syncope (1 source) Syncope and collapse; Translations: [Syncope and collapse] Onset: 05-03-2024 Episodic Urinary tract infections (2 sources) Acute cystitis with hematuria; Translations: [Urinary tract infectious disease] Onset: 05-31-2024 Episodic Results Test Name Value Interpretation Reference Range Facil ity URINALYSISon 05-07-2025 Bilirubin Ql (U) Negative Normal Negative [facility] Comment on above: Performed By: #### U A #### [facility] ([facility]) [address] [place] [address] VIR BLOOD/HGB Trace Abnormal Negative [facility] Comment on above: Performed By: #### U A #### [facility] ([facility]) [address] [place] [address] VIR Color (U) Yellow Normal Yellow [facility] Comment on above: Performed By: #### U A #### [facility] ([facility]) [address] [place] [address] VIR Glucose Ql (U) Negative Normal Negative [facility] Comment on above: Performed By: #### U A #### [facility] ([facility]) [address] [place] [address] VIR Ketones Ql (U) Negative Normal Negative [facility] Comment on above: Performed By: #### U A #### [facility] ([facility]) [address] [place] [address] VIR Leukocyte esterase Test strip Ql (U) Negative Normal Negative [facility] Comment on above: Performed By: #### U A #### [facility] ([facility]) [address] [place] [address] VIR MUCOUS Present Abnormal None [facility] Comment on above: Performed By: #### U A #### [facility] ([facility]) [address] [place] [address] VIR Nitrite Ql (U) Negative Normal Negative [facility] Comment on above: Performed By: #### U A #### [facility] ([facility]) [address] [place] [address] VIR PH,URINE 7.0 Normal 5.0-8.5 [facility] Comment on above: Performed By: #### U A #### [facility] ([facility]) [address] [place] [address] VIR Protein Ql (U) Negative Normal Negative [facility] Comment on above: Performed By: #### U A #### [facility] ([facility]) [address] [place] [address] VIR R.B.CELLS 1 Normal 0-5 [facility] Comment on above: Performed By: #### U A #### [facility] ([facility]) [address] [place] [address] VIR Specific gravity (U) [Rel density] 1.018 Normal 1.003-1.035 [facility] Comment on above: Performed By: #### U A #### [facility] ([facility]) [address] [place] [address] VIR SQUAMOUS EPITHELIUM <^1 Normal 0-5 [facility] Comment on above: Performed By: #### U A #### [facility] ([facility]) [address] [place] [address] VIR TURBIDITY Clear Normal Clear [facility] Comment on above: Performed By: #### U A #### [facility] ([facility]) [address] [place] [address] VIR UROBILINOGEN <1.1 eu/dL Normal <1.1 eu/dL [facility] Comment on above: Performed By: #### U A #### [facility] ([facility]) [address] [place] [address] VIR W.B.CELLS <^1 Normal 0-5 [facility] Comment on above: Performed By: #### U A #### [facility] ([facility]) [address] [place] [address] VIR URINE CULTUREon 05-07-2025 Bacteria identified Cx Nom (U) CULTURE RESULTS NO GROWTH AT <1000 CFU/mL Normal [facility] Comment on above: Performed By: #### U C #### [facility] ([facility]) [address] [place] [address] VIR CHLAMYDIA/GC BY PCRon 2024 CHLAMYDIA/GC BY PCR SPECIMEN SOURCE CERVIX CHLAMYDIA [...] results are dependent on adequate specimen collection. [facility] Comment on above: Performed By: #### C GS #### [facility] ([id number]) [address] [place] [address] URINE CULTUREon 11-18-2024 Bacteria identified Cx Nom (U) CULTURE RESULTS <10,000 ORGANISMS/ML NORMAL URO GENITAL GOGO Normal [facility] Comment on above: Performed By: #### 6 30-4 #### [facility] ([id number]) [address] [place] [address] VAGINITIS PANEL PCRon 2024 VAGINITIS PANEL PCR BACT. VAGINOSIS DNA Not detected (qualifier value) Qualitative results are reported based on detection and quantitation of targeted organism markers which include: Lactobacillus spp. (L. crispatus and L. jensenii), Gardnerella vaginalis, Atopobium vaginae, Bacterial Vaginosis Associated Bacteria-2 (BVAB-2) and Megasphaera-1 CATIA SPECIES DNA Not detected (qualifier value) Catia species not detected include: C. albicans, C. tropicalis, C. parapsilosis or C. dubliniensis CATIA KRUSEI DNA Not detected (qualifier value) No Catia krusei detected CATIA GLABRATA DNA Not detected (qualifier value) No Catia glabrata detected TRICHOMONAS VAG DNA Not detected (qualifier value) No Trichomonas vaginalis detected NOTE BD MAX Vaginal Panel has not been evaluated for patients under 18 years old. Results for these patients should be reviewed and assessed in accordance with clinical presentation to determine patient diagnosis. Normal [facility] Comment on above: Performed By: #### V PPCR #### [facility] ([id number]) [address] [place] [address] MR KNEE RIGHT WO IV CONTRAST on 09-12-2024 MR KNEE RIGHT WO IV CONTRAST EXAMINATION/TECHNIQ UE: MR KNEE RIGHT WO IV CONTRAST HISTORY: Medial knee pain after fall around 1 month ago. COMPARISON: Radiographs 09/05/2024. RESULT: MENISCI: Medial Meniscus: Intact Lateral Meniscus: Intact LIGAMENTS: ACL, PCL, MCL, and LCL complex intact. CARTILAGE: Appears within normal limits. TENDONS: Distal quadriceps intact. Patellar tendon intact. Popliteus intact. BONES AND MARROW: No evidence of fracture or bone marrow replacing process. MUSCLES: Muscle bulk and signal intensity are normal. JOINT FLUID AND SYNOVIUM: No joint effusion. No synovitis. No Feliciano's cyst. OTHER: Mild subcutaneous edema anteriorly. IMPRESSION: Intact menisci and ligaments. ELECTRONICALLY SIGNED BY: Giovani Borges MD Normal Not Available XR Knee - right 1 or 2 Views on 09-05-2024 Imaging Result: 09/05/2024: AP and lateral of right knee showed excellent preservation of joint space heights there was no flattening of the articular surfaces tricompartmentally. There was no evidence of marginal osteophytic formation. Overall alignment appeared to be normal. There was no evidence of fracture or dislocation. Bony structures in view showed excellent ossification. Impression: No acute bony process, right knee Evelio Pineda ADVISORY SERVICES ASSOCIATE-INSURANCE ADJUSTOR [facility] e Radiology Study observation (narrative) [facility] CHLAMYDIA/GC BY PCRon 2023 CHLAMYDIA/GC BY PCR [...] are dependent on adequate specimen collection. Normal [facility] Comment on above: Performed By: #### C GS #### [facility] ([id number]) [address] [address] TRICHOMONAS PCRon 06-06-2024 TRICHOMONAS PCR SPECIMEN SOURCE CERVIX TRICHOMONAS PCR Not detected (qualifier value) Trichomonas vaginalis not detected NOTE Assay methodology is nucleic acid amplification by real-time PCR for detection of Trichomonas vaginalis DNA performed on [employer] System. Normal [facility] Comment on above: Performed By: #### T RKPCR #### [facility] ([id number]) [address] [place] [address], [facility] [address] [place] [address] URINALYSISon 05-31-2024 Bilirubin Ql (U) Negative Normal NEG [facility] Comment on above: Performed By: #### U A #### [facility] ([id number]) [address] [place] [address] BLOOD/HGB Small Abnormal NEG [facility] Comment on above: Performed By: #### U A #### [facility] ([id number]) [address] [place] [address] Color (U) YELLOW Normal YELLOW [facility] Comment on above: Performed By: #### U A #### [facility] ([id number]) [address] [place] [address] Glucose Ql (U) Negative Normal NEG [facility] Comment on above: Performed By: #### U A #### [facility] ([id number]) [address] [place] [address] Ketones Ql (U) Negative Normal NEG [facility] Comment on above: Performed By: #### U A #### [facility] ([id number]) [address] [place] [address] Leukocyte esterase Test strip Ql (U) MODERATE Abnormal NEG [facility] Comment on above: Performed By: #### U A #### [facility] ([id number]) [address] [place] [address], [address] [place] [address] MUCOUS PRESENT Abnormal NONE [facility] Comment on above: Performed By: #### U A #### [facility] ([id number]) [address] [place] [address] Nitrite Ql (U) Negative Normal NEG [facility] Comment on above: Performed By: #### U A #### [facility] ([id number]) [address], [address] [place] [address] pH (U) 6.0 [pH] Normal 5.0-8.5 [facility] Comment on above: Performed By: #### U A #### [facility] ([id number]) [address] [place] [address] Protein Ql (U) Trace Abnormal NEG [facility] Comment on above: Performed By: #### U A #### [facility] ([id number]) [address] [place] [address] R.B.CELLS 1 /hpf Normal 0-5 [facility] Comment on above: Performed By: #### U A #### [facility] ([id number]) [address] [place] [address] Specific gravity (U) [Rel density] 1.031 Normal 1.003-1.035 [facility] Comment on above: Performed By: #### U A #### [facility] ([id number]) [address] [place] [address] SQUAMOUS EPITHELIUM 2 /hpf Normal 0-5 [facility] Comment on above: Performed By: #### U A #### [facility] ([id number]) [address] [place] [address] TURBIDITY CLEAR Normal CLEAR [facility] Comment on above: Performed By: #### U A #### [facility] ([id number]) [address] [place] [address] Urobilinogen (U) [Mass/Vol] mg/dL Normal <1.1 [facility] Comment on above: Performed By: #### U A #### [facility] ([id number]) [address], [address] [place] [address] W.B.CELLS 17 /hpf High 0-5 [facility] Comment on above: Performed By: #### U A #### [facility] ([id number]) [address] [place] [address] URINE CULTUREon 05-31-2024 Bacteria identified Cx Nom (U) CULTURE RESULTS <10,000 ORGANISMS/ML NORMAL URO GENITAL GOGO Normal [facility] Comment on above: Performed By: #### 6 30-4 #### [facility] ([id number]) [address] [place] [address] XR KNEE RT 4V or >on 021 [...] by: MEHDI PERLA Date: 2021-06-29 19:[address] [facility] Progress Noteon 05-01-2018 HIM IP Note OR [place] Normal [facility] Progress Noteon 11-16-2017 HIM IP Note OR [place] Normal [facility] Progress Noteon 10-06-2017 HIM IP Note OR [place] Normal [facility] Vital Signs Date Time Vital Sign Value Performing Clinician Abimbola schwartz 09-05-2024 14:42-0500 Body height 160 cm Evelio Pineda NP Work Phone: [facility] 09-05-2024 14:42-0500 Body mass index (BMI) [Percentile] Per age and sex 92.81 % Evelio Pineda NP Work Phone: [facility] 09-05-2024 14:42-0500 Body mass index (BMI) [Ratio] 29.05 kg/m2 Evelio Pineda NP Work Phone: [facility] 09-05-2024 14:42-0500 Body weight 74.39 kg Evelio Pineda NP Work Phone: [facility] Healthcare Encounters Encounter Date Encounter Type Care Provider Facility Start: 05-07-2025 End: 05-07-2025 ambulatory On license of [facility] Start: 02-19-2025 End: 02-19-2025 ambulatory On license of [facility] Start: 01-06-2025 End: 01-06-2025 ambulatory [facility] Start: 11-27-2024 End: 11-27-2024 ambulatory On license of [facility] Start: 11-18-2024 End: 11-18-[address] [facility] Start: 11-18-2024 End: 11-18-2024 ambulatory [facility] Start: 09-12-2024 End: 09-12-2024 ambulatory EVELIO PINEDA Not Available Start: 09-11-2024 End: 09-11-2024 ambulatory On license of [facility] Start: 09-05-2024 End: 09-05-2024 ambulatory EVELIO PINEDA Not Available Start: 09-05-2024 End: 09-05-2024 Office outpatient new 45 minutes Evelio Pineda NP Work Phone: [facility] Comment on above: Internal derangement of right knee (Primary Dx); Acute pain of right knee Start: 09-05-2024 End: 09-05-2024 Bamboo flowsheet Evelio Pineda NP Work Phone: [facility] Start: 09-05-2024 End: 09-05-2024 Bamboo flowsheet Evelio Pineda REGIONAL ECONOMIST Work Phone: [facility] Start: 08-23-2024 End: 08-23-2024 [facility] Start: 07-22-2024 End: 07-22-2024 ambulatory [facility] Start: 06-26-2024 End: 06-26-2024 ambulatory On license of [facility] Start: 06-07-2024 End: 06-07-2024 ambulatory [facility] Start: 06-06-2024 End: 06-06-2024 ambulatory [facility] Start: 06-06-2024 End: 06-06-2024 ambulatory [facility] Start: 05-31-2024 End: 05-31-2024 ambulatory [facility] Start: 05-31-2024 End: 05-31-2024 ambulatory [facility] Start: 09-29-2021 End: 09-29-2021 ambulatory CRISTHIAN ROBBINS Facility:[facility] Start: 09-02-2021 End: 09-03-2021 ambulatory [facility] Start: 06-29-2021 End: 06-29-2021 ambulatory DEBORAH IJEOMA Facility: Procedures Date Procedure Procedure Detail Performing Clinician Start: 09-05-2024 Radiologic examinati on knee 1/2 views Evelio Pineda REGIONAL ECONOMIST Work Phone: Start: 08-23-2024 Follow-up visit Follow-up GLORIA SAGASTUME Plan of Treatment Date Care Activity Detail Author Start: 09-05-2024 End: 09-05-2025 MR Knee - right WO contrast MR knee right wo IV contrast Imaging Routine Internal derangement of right knee Expected: 09/05/2024 (Approximate), Expires: 09/05/2025 [facility] Healthcare Work Phone: Comment on above: Expected: 09/05/2024 (Approximate), Expires: 09/05/2025 Payers Date Payer Category Payer Other GENERIC OTHER [id number] 2022 Unknown [id number] 2022 Unknown [id number] 2020 Medicaid (Managed Care) [employer] [id number] 2005 Unknown [id number] 2.16.840.1.321114.3.579.2. 1286 2005 Unknown [id number] 2.16.840.1.711280.3.579.2. 9 2005 Unknown [id number] 2.16.840.1.064850.3.579.2. 9 2005 Unknown [id number] 2.16.840.1.384065.3.579.2. 1259 2005 Unknown [id number] 2.16.840.1.419355.3.579.2. 1285 2005 Unknown [id number] 2.16840.1.801710.3.579.2. 1285 2005 Unknown [id number] 2.16840.1.120064.3.579.2. 1285 2005 Unknown [id number] 2.840.1.957200.3.579.2. 1285 2005 Unknown [id number] 2.840.1.533021.3.579.2. 1285 2005 Unknown [id number] 2.0.1.003139.3.579.2. 1285 2005 Unknown [id number] 2.840.1.621495.3.579.2. 1285 2005 Unknown [id number] 2..1.598007.3.579.2. 1285 2005 Unknown [id number] 2.840.1.918706.3.579.2. 1285 2005 Unknown [id number] 2..1.335913.3.579.2. 1285 2005 Unknown [id number] 2.0.1.386055.3.579.2. 1285 2005 Unknown [id number] 2..1.344197.3.579.2. 1285 2005 Unknown [id number] 2.840.1.511180.3.579.2. 1285 2005 Unknown [id number] 2.0.1.651342.3.579.2. 1285 1981 Unknown [id number] 2.840.1.926020.3.579.2. 173 1981 Unknown [id number] 2.840.1.231093.3.579.2. 1981 Unknown [id number] 2.840.1.019443.3.579.2. 593 1959 Unknown [id number] 1959 Unknown [phone] Social History Date Type Detail Facility Tobacco smoking stat [facility] Tobacco smoking consumption unknown [facility] Start: 2005 Sex assigned at Not on file [facility] Start: 09-05-2024 Gender identity Not on file [facility] Start: 09-05-2024 Tobacco smoking stat [facility] Never smoked tobacco [facility] Start: 09-05-2024 Tobacco use and exposure Smokeless t obacco non-user [facility] Start: 09-05-2024 Alcoholic beverage intake Ex-drinker (finding) [facility] Start: 09-05-2024 History of Social function [facility] History of Present illness Narrative 09-05-2024 Evelio Pineda NP - 09/05/2024 2:30 PM EST Note Date & Type Note Facility 09-05-2024 History of Presen t illness Narrative Images from the original note were not included. NAME: William Simms : 2005 HISTORY OF PRESENT ILLNESS: NEW PT William Simms is an 18 y.o. @ female. NEW PT (DEIRDRE CANCHOLA) WITH RT KNEE PAIN - PT STATES SHE FELL OFF A STOOL AND LANDED ON KNEE-WENT TO [facility] ER TX; XRAYS/NWB/CRUTCHES- PT STATES SYMPTOMS STARTED TO IMPROVE AND THEN RECENTLY FELL THROUGH A VENT XRAY RT KNEE TODAY EPIC 09/05/24 XRAY RT KNEE 08/08/24 [facility] PAIN ANTERIOR KNEE- PT DID HAVE SWELLING INITIALLY- +POPPING/CRACKING- +INSTABILITY- INCREASE PAIN WITH ACTIVITY- +TYLENOL/IBUPROFEN PAST MEDICAL HISTORY: Past Medical History: Diagnosis Date ADHD (attention deficit hyperactivity disorder) ([facility]) Anxiety Depression ([facility]) Low blood pressure Pott's disease PAST SURGICAL HISTORY: Past Surgical History: Procedure Laterality Date TONSILLECTOMY WISDOM TOOTH EXTRACTION SOCIAL HISTORY: Social History Occupational History Not on file Tobacco Use Smoking status: Never Smokeless tobacco: Never Substance and Sexual Activity Alcohol use: Not Currently Drug use: Not on file Sexual activity: Not on file ALLERGIES: No Known Allergies HOME MEDICATIONS: Current Outpatient Medications Medication Instructions escitalopram (LEXAPRO) 20 mg, Every morning hydrOXYzine pamoate (Vistaril) 25 MG capsule TAKE 1 CAPSULE BY MOUTH TWICE DAILY NEEDED FOR ANXIETY midodrine (PROAMATINE) 5 mg, 3 times daily Qelbree 200 MG capsule sustained-release 24 hr TAKE 2 CAPSULES BY MOUTH IN THE MORNING. traZODone (DESYREL) 50 mg, Nightly PRN REVIEW OF SYSTEMS: Review of Systems Constitutional: Negative for fatigue, fever and unexpected weight change. Eyes: Negative for redness and visual disturbance. Gastrointestinal: Negative for abdominal pain. Denies Indigestion Musculoskeletal: See note: Skin: Negative for color change and rash. Neurological: Negative for light-headedness. Vitals: Body mass index is 29.05 kg/m . Tobacco Use: Low Risk (09/05/2024) Patient History Smoking Tobacco Use: Never Smokeless Tobacco Use: Never Passive Exposure: Not on file Alcohol Use: Not on file PHYSICAL EXAM: Knee Musculoskeletal Exam Gait Antalgic: right Inspection Leg length disparity: no discrepancy Right Erythema: none Effusion: mild Edema: none Ecchymosis: none Deformity: none Alignment: normal Palpation Right Increased warmth: none Masses: none Tenderness: present Medial joint line: moderate Range of Motion Right Active extension: 5 Passive extension: 0 Active flexion: 120 Passive flexion: 125 Range of motion additional comments: + PAIN ON TERMINAL FLEXION AND EXTENSION Strength Right Right knee strength is normal. Extension: 5/5. Extension is affected by pain. Flexion: 5/5. Flexion is affected by pain. Instability Right Instability signs: none - stable Varus stress grade: normal Valgus stress grade: normal Anterior drawer: normal Medial Elena test: positive Neurovascular Right Right knee neurovascular exam is normal. Pulses - PT: normal Posterior tibial: 2+ Capillary refill: warm and well-perfused Special Signs Right Right knee special signs are normal. Patellar apprehension: none General Constitutional: appears stated age Labored breathing: no Psychiatric: normal mood and affect Neurological: alert Skin: intact Lymphadenopathy: none IMAGING: XR knee 1 or 2 views right Imaging Result: 09/05/2024: AP and lateral of right knee showed excellent preservation of joint space heights there was no flattening of the articular surfaces tricompartmentally. There was no evidence of marginal osteophytic formation. Overall alignment appeared to be normal. There was no evidence of fracture or dislocation. Bony structures in view showed excellent ossification. Impression: No acute bony process, right knee Evelio CRISTINA I reviewed ER not and xray report from [facility] dated 08/08/2024 Procedures Orders Placed This Encounter Procedures XR knee 1 or 2 views right Order Specific Question: Is the patient ? Answer: No Order Specific Question: Reason for exam: Answer: PAIN MR knee right wo IV contrast Standing Status: Future Standing Expiration Date: 09/05/2025 Scheduling Instructions: MRI RT KNEE WITHOUT CONTRAST [facility]; PLEASE CALL PT TO SCHEDULE Order Specific Question: Reason for exam: Answer: PAIN ASSESSMENT: ICD-10-CM 1. Internal derangement of right knee M23.91 MR knee right wo IV contrast 2. Acute pain of right knee M25.561 XR knee 1 or 2 views right PLAN: Patient fell 4 weeks ago and again 2 weeks ago re-injuring knee. Has been having antalgic gait and medial knee pain since. I reviewed xray findings with the patient and discussed treatment options, answered questions. Patient was noted to have pain directly over medial joint line that was worsened with Elena testing. I recommend patient start MDP to help with pain and inflammation and have MRI of the right knee to evaluate for medial meniscus tear. She will follow up post MRI. Questions answered in laymen terms at the bedside. The diagnosis, home exercise plan and any ongoing restrictions/ recommendations reviewed. If unable to be reached in office, I recommend evaluation at nearest Emergency Room if any symptoms worsened or new symptoms develop for requiring urgent evaluation. Evelio Pineda APRN-JEAN-CLAUDE documented in this encounter [facility] Evaluation note Note Date & Type Note Facility Evaluation note Diagnosis Internal derangement of right knee- Primary Acute pain of right knee documented in this encounter [facility] Summary Purpose Family History No Family History [...] section and content) DATE CREATED AUTHOR 06/09/2018 [facility] DATE CREATED AUTHOR AUTHOR'S ORGANIZ ATION 09/03/2021 [facility] DATE CREATED AUTHOR AUTHOR'S ORGANIZ ATION 09/30/2021 [facility] DATE CREATED AUTHOR AUTHOR'S ORGANIZ ATION 07/24/2024 [facility] DATE CREATED AUTHOR AUTHOR'S ORGANIZ ATION 09/17/2024 [facility] DATE CREATED AUTHOR AUTHOR'S ORGANIZ ATION 01/06/2025 [facility] DATE CREATED AUTHOR AUTHOR'S ORGANIZ ATION 05/12/2025 [facility] Care Teams (unrecognized sec tion and content) [employer] Relationship Specialty Start Date End Date Lamonte Ji MD [address] [place] [id number] PCP - General Pediatrics 09/05/24 [employer] Relationship Specialty Start Date End Date Lamonte Ji MD [address] [place] [id number] PCP - General Pediatrics 09/05/24 Reason for Visit (unrecogniz ed section and content) Reason Comments Pain FOR RECORDS PERTAINING TO PATIENTS WHO ARE [...] BE BASED ON THE PRIMARY CLINICAL RECORDS. [employer] provides no warranty or guarantee of the accuracy or completeness of information in this document.
[2025-05-13 21:32] VITALS: BP 111/67; PULSE 90; TEMP 36.8; O2SAT 98; BMI 30.6
--- NOTE | 2025-05-14 | ED_ITS ---
HPI - Abdominal Pain General Chief Complaint: Abdominal Pain Stated Complaint: Abdominal Pain Time Seen by Provider: 05/13/25 23:33 Source: patient Mode of arrival: walk-in Limitations: no limitations History of Present Illness HPI narrative: presents with abdominal pain for the past week. continuous pain. Pain sharp tonight. No vomiting. Has had diarrhea for past couple of weeks. No fever or chills. No respiratory symptoms. still has appetite Related Data Home Medications ?Medication ?Instructions ?Recorded ?Confirmed hydroxyzine pamoate 25 mg capsule 25 mg PO 06/30/24 viloxazine 200 mg capsule,extended 200 mg PO DAILY 01/15/25 release 24 hr (Qelbree) escitalopram oxalate 20 mg tablet mg 01/15/25 midodrine 10 mg tablet mg 01/15/25 Allergies Allergy/AdvReac Type Severity Reaction Status Date / Time No Known Drug Allergies Allergy Verified 05/13/25 21:38 Review of Systems ROS Status of ROS 10 or more systems reviewed and unremark able except as noted in history and below PFSH PFS Social History Smoking status: Never smoker Little interest or pleasure in doing things: not at all Feeling down, depressed, or hopeless: not at all Exam Constitutional Vital Signs, click to edit/add: Last Vital Signs Temp 98.3 F 05/13/25 21:32 Pulse 90 05/13/25 21:32 Resp 18 05/13/25 21:32 BP 111/67 05/13/25 21:32 Pulse Ox 98 05/13/25 21:32 O2 Del Method Room Air 05/13/25 21:32 Common normals: no apparent distress, average body habitus, oriented x3, no limitations, healthy appearing, alert and well nourished [facility] Common normals: normocephalic and head/scalp atraumatic Eye Common normals: PERRL, EOMs intact bilaterally and conjunctivae normal Respiratory Common normals: normal respiratory effort, no retractions, no use of accessory muscles and clear to auscultation bilaterally Cardio Common normals: regular rate, regular rhythm, S1 normal heart sound and S2 normal heart sound GI Common normals: Normal to inspection, nondistended, normoactive bowel sounds present Other: RUQ and RLQ tenderness. no guarding Extremity Common normals: normal to inspection and full ROM Neuro Common normals: oriented x3, CN's II-XII intact bilaterally, moves all extremiti es and no focal motor deficits Psych Appearance: grossly normal Course Vital Signs Vital signs: Vital Signs Temperature 98.3 F 05/13/25 21:32 Pulse Rate 90 05/13/25 21:32 Respiratory Rate 18 05/13/25 21:32 Blood Pressure 111/67 05/13/25 21:32 Pulse Oximetry 98 05/13/25 21:32 Oxygen Delivery Method Room Air 05/13/25 21:32 Temperature 98.3 F 05/13/25 21:32 Pulse Rate 90 05/13/25 21:32 Respiratory Rate 18 05/13/25 21:32 Blood Pressure 111/67 05/13/25 21:32 Pulse Oximetry 98 05/13/25 21:32 Oxygen Delivery Method Room Air 05/13/25 21:32 MDM - Abdominal Pain MDM Narrative Medical decision making narrative: patient presents complaining of epigastric and RUQ pain for one week. No associated nausea or vomiting. CT abd/pelvis without acute abnormality of the abdomen or pelvis. Did demonstrate mass left breast that will need follow up. labs including CBC, CMP WNL. UA with possible infection and cx ordered. Patient does not have any urinary symptoms. GI cocktail ordered to see if this is beneficial patient informed of the mass of the left breast and she was able to palpate it. advised her of the importance of follow up with her doctor for referral to the breast imaging center patient feels the GI cocktail was helpful. Given dose of protonix and discharged with a prescription for protonix Lab Data Labs: Lab Results 05/13/25 05/14/25 Range/Units 00:00 00:40 WBC 6.7 (4.0-11.0) 10^3/uL RBC 4.54 (4.20-5.40) 10^6/uL Hgb 12.1 (12.0-16.0) g/dL Hct 36.3 (36.0-48.0) % MCV 80.0 L (81.0-99.0) fL MCH 26.7 (26.7-34.0) pg MCHC 33.3 (29.9-35.2) g/dL RDW 13.8 (11.0-15.0) % Plt Count 333 (150-450) 10^3/uL MPV 11.1 (9.5-13.5) fL Neut % (Auto) 42.4 L (43.0-75.0) % Lymph % (Auto) 38.9 (20.5-60.0) % [place] % (Auto) 13.3 H (1.7-12.0) % Eos % (Auto) 4.3 (0.9-7.0) % Baso % (Auto) 1.0 (0.2-2.0) % Neut # (Auto) 2.8 (1.4-6.5) 10^3/uL Lymph # (Auto) 2.6 (1.2-3.8) 10^3/uL [place] # (Auto) 0.9 H (0.3-0.8) 10^3/uL Eos # (Auto) 0.3 (0.0-0.7) 10^3/uL Baso # (Auto) 0.1 (0.0-0.1) 10^3/uL Abs Immat Gran (auto) 0.01 (0.00-0.03) 10^3/uL Imm/Tot Granulo (auto) 0.1 (0.0-0.5) % Sodium 139 (136-145) mmol/L Potassium 3.4 L (3.5-5.1) mmol/L Chloride 105 (98-107) mmol/L Carbon Dioxide 23.7 (21.0-32.0) mmol/L Anion Gap 13.7 BUN 14.0 (6.4-19.3) mg/dL Creatinine 0.82 (0.55-1.02) mg/dL Est GFR ( Amer) >60 (>=60 mL/min/1.73m^2) Est GFR (Non-Af Amer) >60 (>=60 mL/min/1.73m^2) BUN/Creatinine Ratio 17.1 Glucose 90 (74-106) mg/dL Lactate 1.1 (0.4-2.0) mmol/L Calcium 9.1 (8.5-10.1) mg/dL Total Bilirubin 0.2 (0.2-1.0) mg/dL AST 17 (15-37) U/L ALT 26 (14-59) U/L Alkaline Phosphatase 101 (46-116) U/L Total Protein 7.8 (6.4-8.2) g/dL Albumin 4.1 (3.4-5.0) g/dL Globulin 3.7 g/dL Albumin/Globulin Ratio 1.1 Lipase 50.0 (16.0-77.0) U/L Urine Color Lt yellow (YELLOW) Urine Clarity Clear (CLEAR) Urine pH 7.0 (5.0-9.0) Ur Specific [place] 1.010 (1.005-1.025) Urine Protein Negative (NEG/TRACE) mg/dL Urine Glucose (UA) Negative (NEGATIVE) mg/dL Urine Ketones Negative (NEGATIVE) mg/dL Urine Occult Blood Trace-intact A (NEGATIVE) Urine Nitrite Negative (NEGATIVE) Urine Bilirubin Negative (NEGATIVE) Urine Urobilinogen 0.2 (0.2-1.0) EU/dL Ur Leukocyte Esterase Trace A (NEGATIVE) Urine RBC 2-5 A (0-2) #/HPF Urine WBC 2-5 A (NONE SEEN) #/HPF Ur Squamous Epith Cells Rare (NONE/RARE) #/LPF Urine Crystals None seen (None Seen) #/HPF Urine Bacteria Small A (NONE SEEN) #/HPF Urine Casts None seen (NONE SEEN) #/LPF Urine Mucus Trace A (NONE SEEN) Ur Culture Indicated? Yes-[facility] [place] Urine HCG, Qual Negative (NEGATIVE) Discharge Plan Discharge Chief Complaint: Abdominal Pain Clinical Impression: Abdominal pain, Breast mass, left Patient Disposition: Home, Self-Care Prescriptions / Home Meds: No Action hydroxyzine pamoate 25 mg capsule 25 mg PO Qelbree 200 mg capsule,extended release 24hr 200 mg PO DAILY midodrine 10 mg tablet escitalopram oxalate 20 mg tablet Print Language: Burundian Instructions: Abdominal Pain (ED), Breast Mass (ED) Additional Instructions: follow up with your doctor this week for referral to the breast imaging center as discussed Referrals: Luann Ji [Primary Care Provider] - 1 week
[2025-05-14 00:11] LABS: HCG Qualitative Urine* NEGATIVE (NEGATIVE)
[2025-05-14 00:15] LABS: Glucose Urine UA NEGATIVE (NEGATIVE)
[2025-05-14 00:20] LABS: Cast Seen? NONE SEEN #/LPF (NONE SEEN); Crystals Seen? None Seen #/HPF (None Seen); Urine Culture Indicated YES-FRMC
[2025-05-14] MEDS: 0.9 % SODIUM CHLORIDE 1,000 ML 999 ML IV (00:42)
[2025-05-14 00:55] LABS: Hematocrit 36.3 % (36.0-48.0); Hemoglobin 12.1 g/dL (12.0-16.0); Immature Granulocytes Abs Auto 0.01 10^3/uL (0.00-0.03); Immature Granulocytes Pct Auto 0.1 % (0.0-0.5); Lymphocytes Absolute Auto 2.6 10^3/uL (1.2-3.8); Mean Corpuscular HGB Conc 33.3 g/dL (29.9-35.2); Mean Corpuscular Hemoglobin 26.7 pg (26.7-34.0); Mean Corpuscular Volume 80.0 fL (81.0-99.0); Platelet Count 333 10^3/uL (150-450); Red Blood Count 4.54 10^6/uL (4.20-5.40); White Blood Count 6.7 10^3/uL (4.0-11.0)
[2025-05-14 01:14] LABS: Lactate/Lactic Acid 1.1 mmol/L (0.4-2.0)
[2025-05-14 01:21] LABS: Alanine Aminotransferase 26 U/L (14-59); Albumin Globulin Ratio 1.1; Albumin Level 4.1 g/dL (3.4-5.0); Alkaline Phosphatase 101 U/L (46-116); Anion Gap 13.7; Aspartate Amino Transferase 17 U/L (15-37); Blood Urea Nitrogen 14.0 mg/dL (6.4-19.3); Calcium 9.1 mg/dL (8.5-10.1); Carbon Dioxide 23.7 mmol/L (21.0-32.0); Chloride 105 mmol/L (98-107); Estimated GFR (African America >60 (>=60 mL/min/1.73m^2); Estimated GFR (Non-African Ame >60 (>=60 mL/min/1.73m^2); Globulin 3.7 g/dL; Glucose 90 mg/dL (74-106); Lipase 50.0 U/L (16.0-77.0); Potassium 3.4 mmol/L (3.5-5.1); Sodium 139 mmol/L (136-145); Total Protein 7.8 g/dL (6.4-8.2)
[2025-05-14] MEDS: lidocaine HCL 15 ML, MAG HYDROX/ALUMINUM HYD/SIMETH 30 ML, HYOSCYAMINE SULFATE 0.25 MG PO (04:08)
== END 2025-05-14 05:17 | disposition home or self-care (01) ==
PROVIDERS: Emergency Provider Internal Medicine; PCP Pediatrics
DX: R10.9 Unspecified abdominal pain (principal); N63.20 Unspecified lump in the left breast, unspecified quadrant
CPT/HCPCS: 36415; 74177; 80053; 81001; 83605; 83690; 84703; 85025; 87086; 99284; Q9967